=== PATIENT | male | born 1990 | race African-American/Black ===

== ENCOUNTER 2018-05-25 02:02 | Emergency (ER) | payer SELFPAY ==
[~2018-05-25] VITALS: Ht 157.5 cm; Wt 55.3 kg
[2018-05-25 02:10] VITALS: BP 131/82
--- NOTE | 2018-05-25 02:10 | NUR ---
PT [id number] C/O HEADACHE X1 HR. -N/V,-SOB,-DIZZINESS. PT AOX4. NAD NOTED. RESP EVEN AND UNLABORED. PT IN BED 10. WILL CONTINUE TO MONITOR.
[2018-05-25] MEDS ORDERED: IBUPROFEN 400 MG TABLET ONE (02:13)
[2018-05-25] MEDS ORDERED: IBUPROFEN 400 MG TABLET PO ONE (02:30)
--- NOTE | 2018-05-25 02:49 | NUR ---
PT REQUESTED TO SPEAK WITH TABLEAU ANALYST. PT NOTIFIED THAT TABLEAU ANALYST WILL COME IN THE MORNING. PT WILLING TO WAIT IN THE WAITING ROOM UNTIL SEEN BY TABLEAU ANALYST. PT REFUSING TAP CARD AND HOMELESS PACKET.
--- NOTE | 2018-05-25 02:55 | NUR ---
PT CHANGED THEIR MIND. PT WANTS TAP CARD AND HOMELESS PACKET.
--- NOTE | 2018-05-25 02:57 | NUR ---
Patient discharged to WAITING ROOM in stable condition. Written and verbal after care instructions given. Patient verbalizes understanding of instruction. PT WAITING FOR OPERATOR ASSISTANT I CEMENTING IN THE MORNING.
== END 2018-05-25 03:11 | disposition home or self-care (01) ==
LOC: ER 02:02
DX: R51 Headache (principal); F17.200 Nicotine dependence, unspecified, uncomplicated